=== PATIENT | female | born 2000 | race Caucasian/White ===

== ENCOUNTER 2021-01-17 16:57 | Emergency (ER) | payer BC ==
[~2021-01-17] VITALS: Ht 162.6 cm; Wt 86.5 kg
[2021-01-17 16:58] VITALS: BP 122/75
[2021-01-17] MEDS ORDERED: KELN1TAB PO (17:07)
[2021-01-17] MEDS ORDERED: SING10TA32 PO (17:07)
[2021-01-17] MEDS ORDERED: VENTAER INH (17:07)
[2021-01-17 20:01] LABS: BASO # 0.1 10^3/uL (0.0-0.2); BASO % 0.5 % (0.0-1.0); EOS % 0.2 % (0.0-3.0); HEMATOCRIT 43.8 % (36.0-47.0); HEMOGLOBIN 14.4 g/dl (12.0-15.5); LYMPH # 2.5 10^3/uL (1.5-5.0); LYMPH % 20.7 % (24.0-44.0); MEAN CORPUSCULAR HEMOGLOBIN 30.4 pg (27.0-33.0); MEAN CORPUSCULAR HGB CONC 32.9 g/dl (32.0-36.5); MEAN CORPUSCULAR VOLUME 92.6 fl (80.0-96.0); MONO # 0.5 10^3/uL (0.0-0.8); MONO % 3.8 % (2.0-8.0); NEUTROPHILS % 74.6 % (36.0-66.0); PLATELET COUNT, AUTOMATED 357 10^3/uL (150-450); RED BLOOD COUNT 4.73 10^6/uL (4.00-5.40)
[2021-01-17 20:15] LABS: INR 1.02; PROTHROMBIN TIME 13.6 SECONDS (12.5-14.3)
[2021-01-17 20:16] LABS: PARTIAL THROMBOPLASTIN TIME 29.7 SECONDS (24.2-38.5)
[2021-01-17 20:36] LABS: BLOOD UREA NITROGEN 10 MG/DL (7-18); CALCIUM LEVEL 9.7 MG/DL (8.5-10.1); CARBON DIOXIDE LEVEL 25 MEQ/L (21-32); CHLORIDE LEVEL 105 MEQ/L (98-107); CREATININE FOR GFR 0.67 MG/DL (0.55-1.30); GLUCOSE, FASTING 88 MG/DL (70-100); SODIUM LEVEL 139 MEQ/L (136-145)
[2021-01-17] MEDS ORDERED: ACETAMINOPHEN 325 MG TAB PO ONE (21:05)
[2021-01-17] MEDS ORDERED: AMOXICILLIN 500 MG CAP PO ONE (21:05)
[2021-01-17] MEDS ORDERED: AMOX500C PO (21:10)
[2021-01-17] MEDS ORDERED: PROT1TAB2 PO (21:10)
[2021-01-17 21:37] LABS: ALBUMIN 4.3 GM/DL (3.2-5.2); ALT/SGPT 24 U/L (12-78); BILIRUBIN,DIRECT < 0.1 MG/DL (0.0-0.2); BILIRUBIN,TOTAL 0.5 MG/DL (0.2-1.0); TOTAL PROTEIN 8.1 GM/DL (6.4-8.2)
[2021-01-17 22:22] LABS: HCG, SERUM QUALITATIVE NEGATIVE (NEGATIVE)
[2021-01-17 22:32] LABS: LIPASE 64 U/L (73-393)
== END 2021-01-17 21:33 | disposition home or self-care (01) ==
LOC: M ED 16:57
DX: J02.0 Streptococcal pharyngitis (principal); B34.8 Other viral infections of unspecified site; K27.9 Peptic ulcer, site unspecified, unspecified as acute or chronic, without hemorrhage or perforation; F17.200 Nicotine dependence, unspecified, uncomplicated; F12.10 Cannabis abuse, uncomplicated

== ENCOUNTER → 2024-07-04 | Outpatient (CLI) | payer MEDICAID ==
[~2024-07-04] MED LIST: AMOX500C PO; ISOVUE-370 76% 100ML VIAL ONE; KELN1TAB PO; MONT-5 PO; PROT1TAB2 PO; VENTAER INH
== END ==
LOC: M PLAIMG 10:23
PROVIDERS: ATTEND Nurse Practitioner Family
DX: R78.81 Bacteremia (principal); B95.62 Methicillin resistant Staphylococcus aureus infection as the cause of diseases classified elsewhere; I26.90 Septic pulmonary embolism without acute cor pulmonale; R91.8 Other nonspecific abnormal finding of lung field
CPT/HCPCS: 71270; Q9967